=== PATIENT | female | born 2005 | race Caucasian/White ===

== ENCOUNTER 2024-09-01 06:15 | Outpatient (REF) | payer OTHER, SELFPAY | END 2024-09-01 06:16 | disposition home or self-care (01) | LOC: HO.UMASIMG 06:15 | PROVIDERS: Visit Provider Family Medicine | DX: N92.6 Irregular menstruation, unspecified (principal) | CPT/HCPCS: 76830; 76856 ==

== ENCOUNTER → 2024-09-01 13:00 | Outpatient (BNV) | payer OTHER, SELFPAY | PROVIDERS: Visit Provider Radiology Diagnostic Radiology | DX: N83.202 Unspecified ovarian cyst, left side (principal) | CPT/HCPCS: 76830; 76856 ==